=== PATIENT | female | born 1975 | race Caucasian/White ===

== ENCOUNTER 2025-03-03 17:35 | Observation (INO) | payer SELFPAY ==
[2025-03-03 17:47] VITALS: BMI 37.0
--- NOTE | 2025-03-03 17:48 | ECG_ITS ---
APPROVED REPORT Exam: Resting ECG HR:89 bpm ECG Measurements Heart Rate 89 AXES WY 179 P 14 QRSd 113 QRS -17 QT 421 T 133 QTc 467 Conclusion SINUS RHYTHM LEFT VENTRICULAR HYPERTROPHY AND ST-T CHANGE [VOLTAGE CRITERIA PLUS ST/T ABNORMALITY] POSSIBLE SEPTAL MYOCARDIAL INFARCTION , PROBABLY RECENT [30 ms Q WAVE IN V1/V2] ACUTE CT UNCONFIRMED REPORT Electronically signed by : Brandon Barbosa MD 03/04/2025 08:55:09
--- NOTE | 2025-03-03 17:51 | P.HP_ITS ---
History of Present Illness *Admission Date: 03/03/25 *Reason for visit:: chest pressure *History of present illness: Ms. Kirby is a 49-year-old female with history of diabetes, hypertension, obesity. She has not been on medications for a few years. She states that yesterday she started having some chest pressure and discomfort while at work. It got worse today with pain into her left arm. She went to the ER in [place] for evaluation. In the ER they worked her up for unstable angina. EKG showed ST depressions but troponins were negative. Initial troponin 52 with second troponin 36. Patient had a negative delta. Potassium was low at 3.0. Blood pressure was severely elevated at 190/90 and increased to 210 systolic. I treated her with carvedilol 12.5, hydralazine, Nitropaste, and then initiated a nitro drip due to persistent chest pain. Her blood pressure dropped to 130 and she had some increased tingling in her arm. She is improved to 150s at this time. Given her unstable angina and severe chest pain along with hypertension, [facility] medicine was consulted for transfer and cardiology evaluation due to malignant hypertension. Upon arrival, patient's blood pressure doing better with systolics 150-160. She denies shortness of breath. Had some mild nausea yesterday with her chest pain. Denies any loss of consciousness. No known previous cardiac history aside from hypertension. States she is a diabetic but has not been on metformin for some time. Does not smoke or drink alcohol. 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 Alert and oriented x 4. Hemodynamically stable on room air. [facility] Disclaimer: The information contained in this section may have been updated after the patient was seen, as this information can be updated by other users. Medical History (Updated 03/03/25 @ 18:10 by Johnson Holt MD) Cholecystectomy planned Anxiety Diabetes Restless leg syndrome Surgical History H/O hernia repair History of hysterectomy Family History Other Breast cancer Diabetes Kidney failure Stroke Thyroid cancer Social History Smoking Status: Never smoker alcohol intake: current current occupational status: employed Travel in the last 8 weeks?: None Have you lived/traveled outside US in past 30 days?: No Contact w/someone who lives/traveled outside US past 30 days?: No Exposure to someone with infectious disease in past 14 days?: No Do you have a fever (greater than 100.4 F or 38 C)?: No Have you tested positive for COVID-19?: No Exposed to someone with COVID-19 in past 14 days?: No Do you have a sore throat?: No Do you have a cough?: No Do you have any weakness?: No Are you experiencing any nausea/vomitting?: No Do you have any diarrhea?: No Are you experiencing any unusual bleeding?: No Do you have any muscle aches/pain?: No Do you have any abdominal pain?: No Are you experiencing loss of taste or smell?: No Review of Systems Review of Systems Review of systems (narrative): 14 point review of systems performed, pertinent positives and negatives as per HPI Meds Home Medications and Allergies Home Medications ?Medication ?Instructions ?Recorded ?Confirmed ?Type citalopram 40 mg tablet (Celexa) 40 mg PO HS 03/03/25 03/03/25 History ropinirole 2 mg tablet 2 mg PO HS 03/03/25 03/03/25 History New Prescriptions to Start Prescriptions: Allergies Allergy/AdvReac Type Severity Reaction Status Date / Time No Known Allergies Allergy Verified 03/03/25 17:49 Exam Data for Last 24 hours I & O for Last 24 hours: Intake & Output 02/28/25 03/01/25 03/02/25 03/03/25 23:59 23:59 23:59 23:59 Weight 113.806 kg Constitutional Constitutional: no acute distress, obese, chronically ill appearing and cooperative *Routine HEENT Exam Head: Present normocephalic Eye: Present EOMI and PERRL ENT: Present mucous membranes moist Comments: Poor dentition *Routine Neck Exam Neck: Present supple; Absent lymphadenopathy Routine Chest/Breast/Axilla Exam Chest wall: Absent tenderness *Routine Respiratory Exam Respiratory: Present CTA bilaterally; Absent rhonchi, wheezes or crackles *Routine Cardiovascular Exam Cardiovascular: Present RRR *Routine Abdominal Exam Abdominal: Present soft and normoactive bowel sounds; Absent tenderness *Routine Rectal Exam Rectal:: deferred *Routine Genitalia Exam Genitalia:: deferred *Routine Extremities Exam Extremities: Absent cyanosis, clubbing or edema *Routine Skin Exam Skin: Present intact and warm; Absent rash Comments: Does have some stigmata of prior IV drug use with scars. No active/acute lesion *Routine Neurological Exam Neurological: Present alert, oriented X3 and moving all extremities; Absent altered mental status Assessment and Plan *Assessment and plan (1) Malignant hypertension: Status: Acute Category: Medical Code(s): I10 - Essential (primary) hypertension (2) Anxiety: Status: Chronic Category: Medical Code(s): F41.9 - Anxiety disorder, unspecified (3) Diabetes: Status: Chronic Category: Medical Code(s): E11.9 - Type 2 diabetes mellitus without complications (4) Angina at rest: Status: Acute Category: Medical Code(s): I20.89 - Other forms of angina pectoris (5) Obesity (BMI 30.0-34.9): Status: Acute Category: Medical Code(s): E66.811 - Obesity, class 1 Plan 49-year-old female who presented to [facility] ER due to chest pain. Found to have malignant hypertension. Discussed case with ER physician at [facility], request transfer for malignant hypertension, persistent chest discomfort, and need for cardiology evaluation. I agreed to accept patient and admit to our facility for further evaluation. Cardiology consulted to evaluate in the morning. Will monitor on telemetry overnight. D iscontinued nitro drip on arrival given patient's improvement in blood pressure. Will transition to oral antihypertensives at this time. Further workup including EKG, troponin, A1c and TSH ordered on arrival. Problems addressed as follows: Malignant hypertension Unstable angina - Echo ordered for the morning. Repeat CBC, CMP, magnesium ordered for the morning. - Telemetry at our facility does show some mild ST depression but no elevations. Troponin at outside hospital showed no delta with initial troponin 52, second troponin 36. - Initiate irbesartan 75 mg once. Reevaluate needs in the morning. - Kidney function normal with BUN 12, creatinine 0.8 per outside hospital records - Was loaded with aspirin 324 mg at outside hospital. Will continue 81 mg daily. -EKG from outside hospital per my review with mild ST depressions in lateral leads. - Cardiology consulted to evaluate in the morning. - Nitropaste on chest if needed for angina - Lipid panel ordered for the morning Hypokalemia. Potassium 3.0 at [facility]. Replaced with 40 mEq p.o. x 1. Will initiate electrolyte replacement protocol. History of diabetes: A1c ordered and pending along with TSH. Will initiate sliding scale insulin with fingersticks ACHS Continue home Celexa 40 mg nightly for depression Resume home ropinirole 2 mg nightly for restless leg Obesity complicates all aspects of her care Given history of IV drug use, HIV and hepatitis panel pending Full code Lovenox 40 mg subcu daily Diabetic diet
[2025-03-03] MEDS: ONDANSETRON 4MG/2ML VIAL 4 MG IV ×2 (17:52→22:21)
[2025-03-03 18:00] VITALS: BP 158/80; PULSE 84; RESP 18; O2SAT 94
--- NOTE | 2025-03-03 18:39 | PC.NURSE ---
Pt was vomiting upon me walking into the room. Charge nurse was aware and in room 0526
[2025-03-03 19:32] LABS: Troponin I 0.03 ng/ml (0.00-0.034)
[2025-03-03 19:50] LABS: Thyroid Stimulating Hormone 1.74 uIU/mL (0.465-4.68)
[2025-03-03 19:56] VITALS: BP 149/81; PULSE 85; RESP 20; TEMP 36.6; O2SAT 96
[2025-03-03 20:00] VITALS: PULSE 100
[2025-03-03 20:49] LABS: Hemoglobin A1C 7.3 % (4.0-6.0)
[2025-03-03] MEDS: CITALOPRAM 40MG TABLET 40 MG PO (20:50)
[2025-03-03] MEDS: humaLOG 100 UNITS/ML 10ML VIAL (SSI) SUBCUT (20:52)
[2025-03-03] MEDS: IRBESARTAN 75MG TABLET 75 MG PO (20:52)
[2025-03-03] MEDS: ROPINIROLE 2 MG 2 EACH PO (20:53)
[2025-03-03] MEDS: PANTOPRAZOLE 40MG TABLET 40 MG PO (20:53)
[2025-03-03 21:22] LABS: Troponin I 0.03 ng/ml (0.00-0.034)
[2025-03-04] VITALS: BP 166/80; PULSE 87; PULSE 90; RESP 18; TEMP 36.7; O2SAT 94
[2025-03-04 01:20] LABS: Troponin I 0.03 ng/ml (0.00-0.034)
[2025-03-04 04:00] VITALS: BP 157/81; PULSE 80; PULSE 83; RESP 16; TEMP 36.7; O2SAT 94; BMI 35.6
--- NOTE | 2025-03-04 04:38 | PC.NURSE ---
Pt A&OX4 and has tolerated room air. Lung sounds clear and bowel sounds active. She has denied any chest pain or shortness of breath. She did have an episode on nausea and was treated per MAR. She has ambulated independently. No complaints at this time, call light within reach.
--- NOTE | 2025-03-04 06:00 | CA_ITS ---
APPROVED REPORT EXAM: Comprehensive 2D, Doppler, and color-flow Echocardiogram Base Filler Operator: Regina Gleason RDCS Ht: 5 ft 9 in Wt: 250lbs BSA: 2.27 BP: 190/90 mmHg Indications: EVAL CHF M-Mode Dimensions RVDd 1.57 cm (0.9-2.6) LA Diam 4.09 cm (1.9-4.0) LVDd 6.18 cm (3.5-5.7) LVDs 4.07 cm (3.5-5.7) IVSd 1.17 cm (0.6-1.1) PWd 1.06 cm (0.6-1.1) EF (Teich) 62.10% FS 34.10% EDV (Teich) 192.60 mL TAPSE 1.22 (<1.7) ESV (Teich) 72.90 mL LV Diastology E Decel Time 213 (160-240 msec) E/A Ratio 1.2 Mitral Valve MV E Max Myke. 82.0 (40-130 cm/s) MV A Velocity 68.0 (40-130 cm/s) E/A Ratio 1.21 MV PHT 62.0 ms Left Ventricle The left ventricle is normal size. Left ventricular systolic function is normal. The left ventricular ejection fraction is within the normal range. There is normal left ventricular wall thickness. There is normal LV segmental wall motion. The left ventricular diastolic function is normal. LVEF is 55% Right Ventricle The right ventricle is normal size. The right ventricular systolic function is normal. Atria The left atrium is mildly dilated. The right atrium size is normal. There is no color Doppler evidence of interatrial shunt. Aortic Valve The aortic valve opens well. There is no hemodynamically significant aortic valvular stenosis. No aortic regurgitation is present. Mitral Valve The mitral valve is normal in structure. No evidence of mitral valve stenosis. Trace mitral regurgitation is present. Tricuspid Valve The tricuspid valve leaflets are thin and pliable. Trace tricuspid regurgitation. There is insufficient TR jet to estimate RVSP. Pulmonic Valve The pulmonary valve is grossly normal in structure. Trace pulmonic valve regurgitation is present. Great Vessels The aortic root is normal in size. IVC is normal in size and collapses >50% with inspiration. Pericardium There is no pericardial effusion. Other Information Study Quality: Fair Conclusion Normal biventricular systolic function. Mild LA dilation. No significant valvular stenosis or regurgitation. Electronically signed by : Chelsi Lucas MD 03/04/2025 08:24:00
[2025-03-04 06:18] LABS: POC Glucose,Bedside 145 (70-110)
[2025-03-04 06:18] LABS: POC Glucose,Bedside 243 (70-110)
[2025-03-04] MEDS: ONDANSETRON 4MG/2ML VIAL 4 MG IV (06:37)
[2025-03-04 06:59] LABS: Albumin Level 3.8 g/dl (3.5-5.0); Chloride 104 mmol/L (98-107); Hematocrit 39.2 % (37.0-47.0); Hemoglobin 12.9 g/dL (12.2-16.2); Immature Granulocytes % 0.4 %; Mean Corpuscular HGB Conc 32.9 g/dL (31.8-35.4); Mean Corpuscular Hemoglobin 28.7 pg (27.0-31.2); Mean Corpuscular Volume 87.3 fl (81-99); Nucleated Red Blood Cells % 0 %; Platelet Count 278 K/mm3 (142-424); Potassium 3.2 mmoL/L (3.5-5.1); Red Blood Count 4.49 M/mm3 (4.20-5.40); Red Cell Distribution Width-SD 46.4 fL; Sodium 140 mmol/L (136-145); White Blood Count 13.6 K/mm3 (4.8-10.8)
[2025-03-04 07:01] LABS: Alanine Aminotransferase 18 U/L (12-78); Aspartate Amino Transferase 29 U/L (14-36); Blood Urea Nitrogen 16 mg/dl (7-17); Creatinine Clearance Estimated 177 mL/min (50-200); Creatinine,Serum 0.70 mg/dl (0.52-1.04); Estimated Glomerular Filt Rate 89 ml/min (>60); GFR (African American) 108 ML/MIN (>60)
[2025-03-04 07:02] LABS: Albumin/Globulin Ratio 1.2 (1.1-1.8); Alkaline Phosphatase 135 U/L (38-126); Anion Gap 9.2 mEq/L (5-15); Bilirubin,Total 0.3 mg/dl (0.2-1.3); Calcium 8.7 mg/dl (8.4-10.2); Carbon Dioxide 30 mmol/L (22.0-30.0); Cholesterol 190 mg/dl (140-200); Globulin 3.3 g/dL (1.3-3.2); Glucose 155 mg/dl (74-100); Magnesium 2.3 mg/dl (1.6-2.3); Total Protein,Serum 7.1 g/dl (6.3-8.2); Triglycerides 156 mg/dl (30-150)
[2025-03-04 07:03] LABS: HDL Cholesterol 38 mg/dl (40-60)
[2025-03-04 07:40] VITALS: BP 158/86; PULSE 76; RESP 15; TEMP 36.7; O2SAT 93
--- NOTE | 2025-03-04 07:51 | HMH.PHAINT1 ---
Pharmacy Intervention Comments: HOME MEDICATION LIST VERIFIED WITH PATIENT
[2025-03-04] MEDS: IRBESARTAN 150MG TAB 150 MG PO (08:08)
[2025-03-04] MEDS: ASPIRIN EC 81MG TABLET 81 MG PO (08:08)
--- NOTE | 2025-03-04 10:34 | US_ITS ---
FINAL REPORT CLINICAL HISTORY: eval parenchyma COMPARISON: None FINDINGS: RENAL ULTRASOUND Ultrasound images of the kidneys were obtained. The right kidney measures 11.4 cm in length. The left kidney measures 11.5 cm in length. Normal renal size. No hydronephrosis. Questionable nonobstructing left renal stones. No evidence of renal mass. IMPRESSION: No evidence of obstruction or significant renal atrophy. Reviewed, Interpreted and Dictated by Michel Gray MD Transcribed by Denise Haley Authenticated and . [facility]
--- NOTE | 2025-03-04 10:34 | CA_ITS ---
FINAL REPORT TECHNIQUE: Spectral and color Doppler exam CLINICAL HISTORY: HTN,DM FINDINGS: DOPPLER RENAL VESSELS HISTORY: Hypertension . FINDINGS: Intrarenal resistive indices on the right are 0.44-0.60, normal . Intrarenal resistive indices on the left are 0.50-0.86, normal . Renal size is normal and symmetric. Right main renal artery systolic velocity: 132 cm/sec. Aortic-right renal artery flow velocity ratio: 0.65 COMMENT: No evidence of hemodynamically significant renal artery stenosis . Left main renal artery systolic velocity: 132 cm/sec. Aortic-left renal artery flow velocity ratio: 0.84 COMMENT: No evidence of hemodynamically significant renal artery stenosis . IMPRESSION: No evidence of hemodynamically significant renal artery stenosis CTA or gadolinium-enhanced MR may be considered as a more sensitive exam. Alternatively noncontrast MRI may be considered for assessing main renal arteries for stenosis as a more sensitive exam if the patient has renal insufficiency. Reviewed, Interpreted and Dictated by Michel Gray MD Transcribed by Denise Haley Authenticated and . [facility]
--- NOTE | 2025-03-04 11:32 | P.CONCA_ITS ---
History of Present Illness History of Present Illness Consult date: 03/04/25 Requesting physician: Johnson Holt Consult reason: chest pain and hypertension Chief complaint: chest pain, hypertension Additional Medical History:: 1. Hypertension, diagnosed many years ago A. Untreated for the last several years due to cost of medications 2. History of IV drug use A. Clean since 2022 3. Diabetes mellitus, untreated A. Diagnosed about 5 years ago 4. Obesity 5. Anxiety History of present illness: Ms. Kirby is a 49-year-old female with history of diabetes, hypertension, obesity. She has not been on medications for a few years. She states that yesterday she started having some chest pressure and discomfort while at work. It got worse today with pain into her left arm. She went to the ER in [place] for evaluation. In the ER they worked her up for unstable angina. EKG showed ST depressions but troponins were negative. Initial troponin 52 with second troponin 36. Patient had a negative delta. Potassium was low at 3.0. Blood pressure was severely elevated at 190/90 and increased to 210 systolic. I treated her with carvedilol 12.5, hydralazine, Nitropaste, and then initiated a nitro drip due to persistent chest pain. Her blood pressure dropped to 130 and she had some increased tingling in her arm. She is improved to 150s at this time. Given her unstable angina and severe chest pain along with hypertension, [facility] medicine was consulted for transfer and cardiology evaluation due to malignant hypertension. Upon arrival, patient's blood pressure doing better with systolics 150-160. She denies shortness of breath. Had some mild nausea yesterday with her chest pain. Denies any loss of consciousness. No known previous cardiac history aside from hypertension. States she is a diabetic but has not been on metformin for some time. Does not smoke or drink alcohol. 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 Alert and oriented x 4. Hemodynamically stable on room air. The above per Dr. Holt. Events as described above reviewed and confirmed with the patient. She previously was on lisinopril and metoprolol in the past but due to lack of insurance was unable to afford the medications. She has reapplied for insurance at this time but is ready to get back on medications. She did complain of chest pain when her blood pressure was greater than 200/100 mmHg. Since the blood pressure has come down the chest pain has resolved. Her troponins here have been normal. Her echocardiogram today shows a preserved ejection fraction with no wall motion abnormalities or significant valve disease. [facility] Disclaimer: The information contained in this section may have been updated after the patient was seen, as this information can be updated by other users. Medical History (Updated 03/04/25 @ 11:42 by ARMAAN Theodore) Cholecystectomy planned Anxiety Diabetes Restless leg syndrome Surgical History H/O hernia repair History of hysterectomy Family History Other Breast cancer Diabetes Kidney failure Stroke Thyroid cancer Social History Smoking Status: Never smoker alcohol intake: current current occupational status: employed Travel in the last 8 weeks?: None Have you lived/traveled outside US in past 30 days?: No Contact w/someone who lives/traveled outside US past 30 days?: No Exposure to someone with infectious disease in past 14 days?: No Do you have a fever (greater than 100.4 F or 38 C)?: No Have you tested positive for COVID-19?: No Exposed to someone with COVID-19 in past 14 days?: No Do you have a sore throat?: No Do you have a cough?: No Do you have any weakness?: No Are you experiencing any nausea/vomitting?: No Do you have any diarrhea?: No Are you experiencing any unusual bleeding?: No Do you have any muscle aches/pain?: No Do you have any abdominal pain?: No Are you experiencing loss of taste or smell?: No Review of Systems Review of Systems Review of systems:: pertinent systems reviewed and negative unless documented below *Cardiovascular Cardiovascular: Reports chest pain, Reports chest pain at rest and Reports dyspnea on exertion *Respiratory Respiratory: Denies cough, Reports dyspnea on exertion and Denies wheezing Allergic/Immunologic Allergic/Immunologic: Denies wheezing Exam Data for Last 24 hours Vital signs and Labs for Last 24 Hours: Temp Pulse Resp BP Pulse Ox O2 Del Method 98.0 F 76 15 158/86 H 93 L Room Air 03/04/25 07:40 03/04/25 07:40 03/04/25 07:40 03/04/25 07:40 03/04/25 07:40 03/04/25 11:00 Laboratory Results - last 24 hr 03/03/25 18:35: HIV Ag/Ab Combo Qual Negative 03/03/25 18:48: Hemoglobin A1c 7.3 H, Troponin I 0.03, TSH 1.74 03/03/25 20:52: POC Glucose 243 H 03/03/25 20:55: Troponin I 0.03 03/04/25 00:33: Troponin I 0.03 03/04/25 06:10: WBC 13.6 H, RBC 4.49, Hgb 12.9, Hct 39.2, MCV 87.3, MCH 28.7, MCHC 32.9, RDW 14.5, Plt Count 278, MPV 10.2, Neut % (Auto) 73.0, Lymph % (Auto) 19.3, [place] % (Auto) 5.7, Eos % (Auto) 1.2, Baso % (Auto) 0.4, Neut # (Auto) 9.9 H, Lymph # (Auto) 2.6, [place] # (Auto) 0.8, Eos # (Auto) 0.2, Baso # (Auto) 0.1, Sodium 140, Potassium 3.2 L, Chloride 104, Carbon Dioxide 30, Anion Gap 9.2, BUN 16, Creatinine 0.70, Estimated Creat Clear 177, Estimated GFR 89, Est GFR ( Amer) 108, Glucose 155 H, POC Glucose 145 H, Calcium 8.7, Magnesium 2.3, Total Bilirubin 0.3, AST 29, ALT 18, Alkaline Phosphatase 135 H, Total Protein 7.1, Albumin 3.8, Globulin 3.3 H, Albumin/Globulin Ratio 1.2, Triglycerides 156 H, Cholesterol 190, LDL Cholesterol Direct 104.30, VLDL Cholesterol 31, HDL Cholesterol 38 L, Cholesterol/HDL Ratio 5.0 H I & O for Last 24 hours: Intake & Output 03/01/25 03/02/25 03/03/25 03/04/25 11:59 11:59 11:59 11:59 Intake Total 250 / 250 Output Total 200 / 200 Balance 50 / 50 Weight 250 lb 14.388 oz Constitutional Constitutional: no acute distress *Routine HEENT Exam Comments: Poor dentition with some teeth missing. *Routine Respiratory Exam Respiratory: Present CTA bilaterally; Absent rhonchi or wheezes *Routine Cardiovascular Exam Cardiovascular: Present RRR; Absent murmur, gallop or rubs *Routine Extremities Exam Extremities: Absent edema *Routine Neurological Exam Neurological: Present alert, oriented X3 and CN II-XII intact Meds Home Medications and Allergies Home Medications ?Medication ?Instructions ?Recorded ?Confirmed ?Type citalopram 40 mg tablet (Celexa) 40 mg PO HS 03/03/25 03/03/25 History ropinirole 2 mg tablet 2 mg PO HS 03/03/25 03/03/25 History irbesartan 150 mg tablet 150 mg PO DAILY 30 days #30 tabs 03/04/25 Rx metformin 500 mg tablet 500 mg PO BIDWMEAL #60 tabs 03/04/25 Rx New Prescriptions to Start Prescriptions: irbesartan Johnson Holt metformin Johnson Holt Allergies Allergy/AdvReac Type Severity Reaction Status Date / Time No Known Allergies Allergy Verified 03/03/25 17:49 Assessment and Plan *Assessment and plan (1) Angina at rest: Status: Acute Category: Medical Code(s): I20.89 - Other forms of angina pectoris (2) Malignant hypertension: Status: Acute Category: Medical Code(s): I10 - Essential (primary) hypertension (3) Diabetes: Status: Chronic Qualifiers: Diabetes mellitus type: type 2 Diabetes mellitus assisted insulin use: without machine long goods helper use Diabetes mellitus complication status: without complication Qualified Code(s): E11.9 - Type 2 diabetes mellitus without complications Category: Medical Code(s): E11.9 - Type 2 diabetes mellitus without complications (4) Anxiety: Status: Chronic Category: Medical Code(s): F41.9 - Anxiety disorder, unspecified (5) Obesity (BMI 30-39.9): Status: Acute Category: Medical Code(s): E66.9 - Obesity, unspecified Plan 1. Malignant hypertension on admission with blood pressure over 200/100 mmHg -Blood pressure has significantly improved with single agent use of irbesartan -Normal renal function -Renal duplex and renal artery duplex pending 2. Chest pain, resolved with improvement in blood pressure -Troponins normal here -Echocardiogram shows preserved ejection fraction with no significant valve disease -EKG is sinus at 89 bpm with LVH with repolarization changes 3. Diabetes mellitus -Improved control on metformin -Hemoglobin A1c 7.3 this admission 4. Obesity with BMI of 35.7 5. History of anxiety -On Celexa and ropinirole 6. LDL of 104 this admission -Will hold off on statin therapy until further evaluation of coronary arteries Stable from cardiac standpoint for discharge home. Follow-up in our office in 1 to 2 weeks for further evaluation including outpatient stress testing. Home medication recommendations: Irbesartan 150 mg daily
--- NOTE | 2025-03-04 12:51 | EXP.DC.SUM ---
General Admission date:: 03/03/25 Discharge date: 03/04/25 HPI HPI HPI: Ms. Kirby is a 49-year-old female with history of diabetes, hypertension, obesity. She has not been on medications for a few years. She states that yesterday she started having some chest pressure and discomfort while at work. It got worse today with pain into her left arm. She went to the ER in [place] for evaluation. In the ER they worked her up for unstable angina. EKG showed ST depressions but troponins were negative. Initial troponin 52 with second troponin 36. Patient had a negative delta. Potassium was low at 3.0. Blood pressure was severely elevated at 190/90 and increased to 210 systolic. I treated her with carvedilol 12.5, hydralazine, Nitropaste, and then initiated a nitro drip due to persistent chest pain. Her blood pressure dropped to 130 and she had some increased tingling in her arm. She is improved to 150s at this time. Given her unstable angina and severe chest pain along with hypertension, [facility] medicine was consulted for transfer and cardiology evaluation due to malignant hypertension. Upon arrival, patient's blood pressure doing better with systolics 150-160. She denies shortness of breath. Had some mild nausea yesterday with her chest pain. Denies any loss of consciousness. No known previous cardiac history aside from hypertension. States she is a diabetic but has not been on metformin for some time. Does not smoke or drink alcohol. 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 Alert and oriented x 4. Hemodynamically stable on room air. Hospital Course Hospital Course Hospital Course: 49-year-old female who presented to [facility] ER due to chest pain. Found to have malignant hypertension. Discussed case with ER physician at [facility], request transfer for malignant hypertension, persistent chest discomfort, and need for cardiology evaluation. I agreed to accept patient and admit to our facility for further evaluation. Cardiology consulted to evaluate in the morning. Will monitor on telemetry overnight. Discontinued nitro drip on arrival given patient's improvement in blood pressure. Transitioned to oral antihypertensives during admission. Overall did better with improvement in blood pressure. Cardiology evaluated. Recommend outpatient workup with stress test. Stable discharge home with close follow-up in the next week. Problems addressed as follows: Malignant hypertension Unstable angina - Presented with severe hypertension and chest pain symptoms as a transfer from [facility]. Initiated on blood pressure regimen. Showed improvement clinically. Blood pressure better by morning with systolic of 150s, diastolic 80s. Cardiology evaluated, recommend continuing to treat blood pressure and proceed with stress test as an outpatient. Echo obtained with preliminary read showing preserved ejection fraction. Kidney function and electrolytes normal during admission. Troponin with no delta or elevation. EKG with no STEMI. Will continue irbesartan 150 mg daily. Found to have elevated A1c consistent with diabetes. TSH normal. LDL 104. Further management after follow-up with cardiology. Hypokalemia. Potassium 3.0 at [facility]. Replaced per protocol. Improving at 3.2 by morning. Magnesium 2.3. History of diabetes: A1c 7.3 on admission. Will initiate metformin 500 mg twice daily. Needs further adjustment as an outpatient. Continue home Celexa 40 mg nightly for depression Resume home ropinirole 2 mg nightly for restless leg Obesity complicates all aspects of her care Given history of IV drug use, HIV and hepatitis panel obtained for screening. HIV negative. Hepatitis panel still pending at discharge. Total time spent on discharge 32 minutes in counseling, documentation, chart review, and direct care with patient. Exam Data for Last 24 hours Vital signs and Labs for Last 24 Hours: Temp Pulse Resp BP Pulse Ox O2 Del Method 98.0 F 76 15 158/86 H 93 L Room Air 03/04/25 07:40 03/04/25 07:40 03/04/25 07:40 03/04/25 07:40 03/04/25 07:40 03/04/25 11:00 Laboratory Results - last 24 hr 03/03/25 18:35: HIV Ag/Ab Combo Qual Negative 03/03/25 18:48: Hemoglobin A1c 7.3 H, Troponin I 0.03, TSH 1.74 03/03/25 20:52: POC Glucose 243 H 03/03/25 20:55: Troponin I 0.03 03/04/25 00:33: Troponin I 0.03 03/04/25 06:10: WBC 13.6 H, RBC 4.49, Hgb 12.9, Hct 39.2, MCV 87.3, MCH 28.7, MCHC 32.9, RDW 14.5, Plt Count 278, MPV 10.2, Neut % (Auto) 73.0, Lymph % (Auto) 19.3, [place] % (Auto) 5.7, Eos % (Auto) 1.2, Baso % (Auto) 0.4, Neut # (Auto) 9.9 H, Lymph # (Auto) 2.6, [place] # (Auto) 0.8, Eos # (Auto) 0.2, Baso # (Auto) 0.1, Sodium 140, Potassium 3.2 L, Chloride 104, Carbon Dioxide 30, Anion Gap 9.2, BUN 16, Creatinine 0.70, Estimated Creat Clear 177, Estimated GFR 89, Est GFR ( Amer) 108, Glucose 155 H, POC Glucose 145 H, Calcium 8.7, Magnesium 2.3, Total Bilirubin 0.3, AST 29, ALT 18, Alkaline Phosphatase 135 H, Total Protein 7.1, Albumin 3.8, Globulin 3.3 H, Albumin/Globulin Ratio 1.2, Triglycerides 156 H, Cholesterol 190, LDL Cholesterol Direct 104.30, VLDL Cholesterol 31, HDL Cholesterol 38 L, Cholesterol/HDL Ratio 5.0 H I & O for Last 24 hours: Intake & Output 03/01/25 03/02/25 03/03/25 03/04/25 23:59 23:59 23:59 23:59 Intake Total 250 / 250 Output Total 200 / 200 Balance 50 / 50 Weight 113.806 kg 113.806 kg Constitutional Constitutional: no acute distress, obese, chronically ill appearing and cooperative *Routine HEENT Exam Head: Present normocephalic Eye: Present EOMI and PERRL ENT: Present mucous membranes moist *Routine Neck Exam Neck: Present supple; Absent lymphadenopathy *Routine Respiratory Exam Respiratory: Present CTA bilaterally; Absent rhonchi, wheezes or crackles *Routine Cardiovascular Exam Cardiovascular: Present RRR *Routine Abdominal Exam Abdominal: Present soft and normoactive bowel sounds; Absent tenderness *Routine Rectal Exam Patient deferred: visual exam *Routine Exam Patient deferred: external exam *Routine Extremities Exam Extremities: Absent cyanosis, clubbing or edema *Routine Skin Exam Skin: Present intact and warm; Absent rash *Routine Neurological Exam Neurological: Present alert, oriented X3 and moving all extremities; Absent altered mental status Results Data Completed and Pending Labs on day of discharge: Labs from last 24 hours 03/04/25 03/04/25 03/03/25 06:10 00:33 20:55 WBC 13.6 H RBC 4.49 Hgb 12.9 Hct 39.2 MCV 87.3 MCH 28.7 MCHC 32.9 RDW 14.5 Plt Count 278 MPV 10.2 Neut % (Auto) 73.0 Lymph % (Auto) 19.3 [place] % (Auto) 5.7 Eos % (Auto) 1.2 Baso % (Auto) 0.4 Neut # (Auto) 9.9 H Lymph # (Auto) 2.6 [place] # (Auto) 0.8 Eos # (Auto) 0.2 Baso # (Auto) 0.1 Sodium 140 Potassium 3.2 L Chloride 104 Carbon Dioxide 30 Anion Gap 9.2 BUN 16 Creatinine 0.70 Estimated Creat Clear 177 Estimated GFR 89 Est GFR ( Amer) 108 Glucose 155 H POC Glucose 145 H Hemoglobin A1c Calcium 8.7 Magnesium 2.3 Total Bilirubin 0.3 AST 29 ALT 18 Alkaline Phosphatase 135 H Troponin I 0.03 0.03 Total Protein 7.1 Albumin 3.8 Globulin 3.3 H Albumin/Globulin Ratio 1.2 Triglycerides 156 H Cholesterol 190 LDL Cholesterol Direct 104.30 VLDL Cholesterol 31 HDL Cholesterol 38 L Cholesterol/HDL Ratio 5.0 H TSH HIV Ag/Ab Combo Qual 03/03/25 03/03/25 03/03/25 20:52 18:48 18:35 WBC RBC Hgb Hct MCV MCH MCHC RDW Plt Count MPV Neut % (Auto) Lymph % (Auto) [place] % (Auto) Eos % (Auto) Baso % (Auto) Neut # (Auto) Lymph # (Auto) [place] # (Auto) Eos # (Auto) Baso # (Auto) Sodium Potassium Chloride Carbon Dioxide Anion Gap BUN Creatinine Estimated Creat Clear Estimated GFR Est GFR ( Amer) Glucose POC Glucose 243 H Hemoglobin A1c 7.3 H Calcium Magnesium Total Bilirubin AST ALT Alkaline Phosphatase Troponin I 0.03 Total Protein Albumin Globulin Albumin/Globulin Ratio Triglycerides Cholesterol LDL Cholesterol Direct VLDL Cholesterol HDL Cholesterol Cholesterol/HDL Ratio TSH 1.74 HIV Ag/Ab Combo Qual Negative DS: Diagnosis Discharge Diagnosis (1) Malignant hypertension: Status: Acute Code(s): I10 - Essential (primary) hypertension (2) Angina at rest: Status: Acute Code(s): I20.89 - Other forms of angina pectoris (3) Diabetes: Status: Chronic Code(s): E11.9 - Type 2 diabetes mellitus without complications Qualifiers: Diabetes mellitus type: type 2 Diabetes mellitus long term care social worker insulin use: without long term care social worker use Diabetes mellitus complication status: without complication Qualified Code(s): E11.9 - Type 2 diabetes mellitus without complications (4) Anxiety: Status: Chronic Code(s): F41.9 - Anxiety disorder, unspecified (5) Obesity (BMI 30-39.9): Status: Acute Code(s): E66.9 - Obesity, unspecified Meds Home Medications and Allergies Home Medications ?Medication ?Instructions ?Recorded ?Confirmed ?Type citalopram 40 mg tablet (Celexa) 40 mg PO HS 03/03/25 03/03/25 History ropinirole 2 mg tablet 2 mg PO HS 03/03/25 03/03/25 History irbesartan 150 mg tablet 150 mg PO DAILY 30 days #30 tabs 03/04/25 Rx metformin 500 mg tablet 500 mg PO BIDWMEAL #60 tabs 03/04/25 Rx New Prescriptions to Start Prescriptions: irbesartan Johnson Holt metformin Johnson Holt Allergies Allergy/AdvReac Type Severity Reaction Status Date / Time No Known Allergies Allergy Verified 03/03/25 17:49 Discharge Plan Disposition Patient Disposition: Home, Self-Care Condition: Good Follow up Plan Follow up with: Brock Lincoln PA [Physician Breeding Manager, Cardiology] - Enter time for follow up Prescriptions/Medication Reconciliation: New irbesartan 150 mg Tablet 150 mg PO DAILY 30 Days Qty: 30 0RF metformin 500 mg tablet 500 mg PO BIDWMEAL Qty: 60 0RF Continued citalopram [Celexa] 40 mg Tablet 40 mg PO HS ropinirole 2 mg Tablet 2 mg PO HS Rx Instructions: administer 1-3 hours before bedtime Problem Reconciliation Problems Reviewed?: Yes Patient Discharge Instructions ACTIVITY: Continue current activity DIET: continue same diet, diabetic diet and low fat, low cholesterol Print Language: Tajik Providers Primary Care Provider: Provider,Referral Admit Provider: Johnson Holt Attending Provider: Johnson Holt
--- NOTE | 2025-03-05 09:52 | SW/DCPLANNER ---
Spoke with patient on the phone. Patient stated that she is doing good. Patient stated that she is going to call and schedule her cardiology appointment today. Patient stated that she was able to get her medicine brought to her bedside before she was discharge. Patient stated that she has no concerns or questions at this time. Refugio Quiroga
== END 2025-03-04 12:45 | disposition home or self-care (01) ==
PROVIDERS: Admitting Provider Internal Medicine Adolescent Medicine; Visit Provider Internal Medicine Adolescent Medicine
DX: I20.89 Other forms of angina pectoris (principal); I11.9 Hypertensive heart disease without heart failure; E87.6 Hypokalemia; E11.9 Type 2 diabetes mellitus without complications; F32.A Depression, unspecified; E66.811 Obesity, class 1; G25.81 Restless legs syndrome; F41.9 Anxiety disorder, unspecified; Z68.35 Body mass index [BMI] 35.0-35.9, adult; Z79.899 Other long term (current) drug therapy
CPT/HCPCS: 96374; 96376 ×2; 36415; 76770; 80053; 80061; 80074; 82962; 83036; 83735; 84443; 84484; 85025; 87389; 93005; 93306; 93976; G0378; J1650; J2405